=== PATIENT | female | born 1945 | race Caucasian/White ===

== ENCOUNTER → 2018-08-01 | Outpatient (CLI) | payer OTHER ==
[~2018-08-01] MED LIST: IOPAMIDOL (ISOVUE 370) 100 ML BTL IV ONE; IOPAMIDOL (ISOVUE-370) 150 ML BTL IV ONE
== END ==
LOC: CIMAGING 13:24
PROVIDERS: ATTEND Emergency Medicine
DX: R10.9 Unspecified abdominal pain (principal); K59.00 Constipation, unspecified; N28.1 Cyst of kidney, acquired
CPT/HCPCS: 74160; Q9967